=== PATIENT | male | born 1950 | race Caucasian/White ===

== ENCOUNTER → 2018-12-03 14:47 | Outpatient (CLI) | payer SELFPAY ==
[2018-12-03 17:08] LABS: Amphetamine Urine VISTA NEGATIVE (<1000 ng/mL); Barbiturate Urine VISTA NEGATIVE (< 200 ng/mL); Benzodiazepine Urine VISTA NEGATIVE (< 200 ng/mL); Cocaine Urine VISTA NEGATIVE (< 300 ng/mL); Ecstacy Urine VISTA NEGATIVE (< 500 ng/mL); Methadone Urine VISTA NEGATIVE (< 300 ng/mL); PCP Urine VISTA NEGATIVE (< 25 ng/mL); THC Urine VISTA NEGATIVE (< 50 ng/mL); Vista UDS pH Range 7
[2018-12-03 18:50] LABS: TCA Internal Control -Neg LINE = VALID (- VALID); TCA Urine Drug Screen Negative (<1000 ng/mL)
== END ==
PROVIDERS: Family Provider Family Medicine; PCP Family Medicine; Referring Provider Family Medicine; Visit Provider Family Medicine
DX: M54.9 Dorsalgia, unspecified (principal); G89.29 Other chronic pain
CPT/HCPCS: 80307

== ENCOUNTER → 2019-01-31 | Outpatient (CLI) | payer MEDICARE, SELFPAY ==
[2019-01-12 13:25] VITALS: BMI 23.8
--- NOTE | 2019-01-31 15:15 | RAD_ITS ---
STUDY: X-RAY - LUMBAR SPINE REASON FOR EXAM: Male, 68 years old. Diffuse pain. History of 3 back surgeries with 3 discectomies. TECHNIQUE: 3 view(s) of the lumbar spine were obtained. COMPARISON: None FINDINGS: Normal lumbar lordosis. There is no substantial scoliosis. There is a normal alignment of the vertebrae. There is diffuse demineralization with multi-level endplate spondylosis. There is multi-level degenerative disc disease with multi-level disc space narrowing. There is a compression fracture of L1 with vertebra plana deformity. There is atherosclerotic calcification of the abdominal aorta without a demonstrated aneurysm. RAD/Lumbar Spine 2 or 3 Views IMPRESSION: 1. Age-indeterminate compression deformity of L1. This appears remote. 2. Osteopenia and degenerative changes of the lumbar spine. Electronically Signed: Micah Welch DO at 21:56 EDT Tel [phone], Service support ,
[2019-01-31 15:55] LABS: Amphetamine Urine VISTA NEGATIVE (<1000 ng/mL); Barbiturate Urine VISTA NEGATIVE (< 200 ng/mL); Benzodiazepine Urine VISTA NEGATIVE (< 200 ng/mL); Cocaine Urine VISTA NEGATIVE (< 300 ng/mL); Ecstacy Urine VISTA NEGATIVE (< 500 ng/mL); Methadone Urine VISTA NEGATIVE (< 300 ng/mL); PCP Urine VISTA NEGATIVE (< 25 ng/mL); THC Urine VISTA NEGATIVE (< 50 ng/mL); Vista UDS pH Range 6
== END | disposition home or self-care (01) ==
LOC: LAB 14:48
PROVIDERS: Family Provider Family Medicine; PCP Family Medicine; Referring Provider Anesthesiology Pain Medicine; Visit Provider Anesthesiology Pain Medicine
DX: F11.20 Opioid dependence, uncomplicated (principal); M54.5 Low back pain
CPT/HCPCS: 72100; 80307

== ENCOUNTER → 2019-02-08 | Outpatient (CLI) | payer MEDICARE, SELFPAY ==
[2019-01-12 13:25] VITALS: BMI 23.8
--- NOTE | 2019-02-08 16:45 | MRI_ITS ---
STUDY: MRI LUMBAR SPINE WITHOUT CONTRAST REASON FOR EXAM: Male, 68 years old. Chronic back pain TECHNIQUE: Standardized fat and water weighted pulse sequences were obtained in the sagittal and axial planes. COMPARISON: None FINDINGS: T12-L1: Severe compression fracture of L1 with retropulsion of bony fragment narrowing the spinal canal and compressing the conus. The fracture appears predominantly chronic however there is still mild intramedullary bone marrow edema posteriorly slightly to the left of the midline in association with a fracture line consistent with recurrent subacute to acute injury. This also produces mild narrowing of the spinal canal at T12-L1 also mildly encroaching upon the ventral surface of the cord Normal lumbar lordosis. There is no substantial scoliosis. Normal conus medullaris that terminates at T12-L1 L1-2: Grade 1 retrolisthesis. Left paracentral/posterolateral disc/osteophyte protrusion narrowing the spinal canal and compressing the conus. Narrowing of the lateral recesses and neural foraminal L2-3: Normal endplates. Normal disc height, desiccation and mild annular bulge with small bilateral foraminal disc protrusions... Facet arthropathy and thickening of ligamenta flava. Mild narrowing of the central canal and bilateral lateral recesses. Moderate bilateral neuroforaminal stenosis L3-4: Normal endplates. Normal disc height, desiccation and mild to moderate bulging of the annulus. The lateral facet arthropathy and thickening of ligamenta flava.. Moderate to severe central canal stenosis and moderate to severe bilateral recess and neuroforaminal stenosis exaggerated by shortened pedicles. L4-5: Grade 1 retrolisthesis. Narrowed disc space with desiccation of the disc and minor bulging disc osteophyte complex. Bilateral facet arthropathy greater on the right. Normal central canal. Severe bilateral recess and neural foraminal stenosis slightly worse on the right. L5-S1: Status post bilateral laminectomy and discectomy. Grade 1 spondylolisthesis. Desiccation of the disc and mild bulging disc osteophyte complex. Facet arthropathy greater on the right.. Normal central canal. Mild left lateral recess encroachment. Moderate left neuroforaminal stenosis and more severe narrowing on the right exaggerated by shortened pedicles Normal visualized sacral ala. Normal visualized paraspinous soft tissue structures. MRI/Spine Lumbar (Routine) IMPRESSION: Severe compression fracture of L1 which appears both chronic and subacute mild residual intramedullary bone marrow edema in association with retropulsion of bony fragment and disc narrowing the spinal canal and mildly compressing the cord. Multilevel spinal stenosis secondary to disc disease and bony hypertrophy most severe at L3-4 and L4-5 Postsurgical changes at L5-S1 Electronically Signed: Florian Barr MD at 17:46 EDT , Service support ,
== END | disposition home or self-care (01) ==
LOC: MRI 14:45
PROVIDERS: Family Provider Family Medicine; PCP Family Medicine; Referring Provider Anesthesiology Pain Medicine; Visit Provider Anesthesiology Pain Medicine
DX: M54.9 Dorsalgia, unspecified (principal); M79.606 Pain in leg, unspecified
CPT/HCPCS: 72148

== ENCOUNTER → 2019-12-22 09:51 | Outpatient (CLI) | payer MEDICARE, SELFPAY ==
[2019-12-22 09:44] VITALS: BMI 23.8
[2019-12-22 14:18] LABS: Amphetamine Urine VISTA NEGATIVE (<1000 ng/mL); Barbiturate Urine VISTA NEGATIVE (< 200 ng/mL); Benzodiazepine Urine VISTA NEGATIVE (< 200 ng/mL); Cocaine Urine VISTA NEGATIVE (< 300 ng/mL); Ecstacy Urine VISTA NEGATIVE (< 500 ng/mL); Methadone Urine VISTA NEGATIVE (< 300 ng/mL); PCP Urine VISTA NEGATIVE (< 25 ng/mL); THC Urine VISTA NEGATIVE (< 50 ng/mL); Vista UDS pH Range 5
== END ==
PROVIDERS: PCP Family Medicine; Referring Provider Family Medicine; Visit Provider Family Medicine
DX: F11.20 Opioid dependence, uncomplicated (principal)
CPT/HCPCS: 80307